=== PATIENT | male | born 1975 | race African-American/Black ===

== ENCOUNTER 2017-05-24 12:45 | Inpatient (IN) | payer BC, OTHER ==
[2017-05-24] MEDS ORDERED: Insulin Aspart 100 Units/ML 3 ML Pen SUBCUT STA ×2 (12:55→14:29)
[2017-05-24] MEDS ORDERED: Sodium Chloride 0.9% 1,000 ML IV SCH ×4 (13:00→16:30)
[2017-05-24] MEDS ORDERED: Sodium Chloride 0.9% 10 ML Syringe FLUSH PRN (14:00)
[2017-05-24] MEDS ORDERED: Insulin Regular, Human 100 Units/ML 3 ML Vial SUBCUT ONE (14:00)
[2017-05-24] MEDS ORDERED: Sodium Chloride 0.45% 1,000 ML IV SCH (14:30)
[2017-05-24] MEDS ORDERED: Insulin Regular, Human 100 Units/ML 3 ML Vial IVPUSH ONE (17:00)
[2017-05-24] MEDS ORDERED: metFORMIN 500 MG Tab.ER PO SCH (18:00)
[2017-05-24] MEDS ORDERED: Insuln Aspart Prot/Insulin Aspart 100 Units/ML 3 ML FlexPen SUBCUT SCH (18:00)
[2017-05-24] MEDS ORDERED: Insulin Detemir 100 Units/ML 3 ML Pen SUBCUT SCH (20:00)
[2017-05-24] MEDS ORDERED: metFORMIN 500 MG Tab.ER PO ONE (20:19)
[2017-05-24 20:29] VITALS: BP 129/78
--- NOTE | 2017-05-24 21:42 | HP ---
ADMISSION DATE: 05/24/2017 CHIEF COMPLAINT: Diabetes, new onset. HISTORY OF PRESENT ILLNESS: Mr. 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 He states that for the past few days he has felt more thirst, frequent urination, slightly blurred vision and he has been drinking more water for this reason, he came in to [place] for blood work. Yesterday, it came back last night and they instructed him to return to the ER today for followup. He was seen in emergency room and his blood sugar came back at 444, for this reason he was admitted to observation care. He was given insulin and started on IV fluid with the new diagnosis of diabetes. The patient has not had any recent infections. He has not been on any medications, specifically steroids. He does exercise on his treadmill almost every day. He states that he does eat high carbohydrates and eats rice at least 4 days a week along with a moderate amount of bread products. PAST MEDICAL HISTORY: He has been very healthy. He is status post appendectomy at age 7. He has had no other surgeries, hospitalizations or illnesses. He is on no medications. He thinks that he had blood work approximately 4 to 5 years ago and was not told there is anything abnormal. MEDICATIONS: None. ALLERGIES: None. HABITS: He is nonsmoker. Occasional alcohol, 2 to 4 beers a week. No caffeinated beverages or other drugs. FAMILY AND SOCIAL HISTORY: The patient's father at age 54 of motor vehicle accident, he was apparently healthy at that time. Mother is age 82 and has Alzheimer's and arthritis. He has several siblings who are all healthy without other family history of diabetes. The patient is single. 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 He moved here from [facility] several years ago and has a brother in [place], where he lived for five years before he moved to [place] to go to school at [employer]. REVIEW OF SYSTEMS: GENERAL: No seizures, syncope, or recent significant weight change. He thinks he may have lost a few pounds. HEENT: No recent changes in hearing, he does report blurred vision and he made an eye appointment for Friday. No sore throat or URI. No cough or purulent sputum. No chest pain or palpitations. No abdominal pain, nausea, diarrhea. No hematochezia or melena. No hematuria or UTI symptoms. No joint inflammation, swelling, skin rash, or mood instability. PHYSICAL EXAMINATION: GENERAL: He is alert, comfortable, and healthy in appearance. He is a good historian. VITAL SIGNS: Blood pressure 133/82, pulse 68 and regular, respirations 18, temp 97.6. Weight 215 pounds. O2 saturation 97% on room air. SKIN: Anicteric, warm, dry, without rash. HEENT: Show clear TMs. Pupils are equal and reactive. Oropharynx clear. NECK: Supple. Thyroid is normal. LUNGS: Clear to the bases. BACK: Straight, nontender. HEART: Regular without murmur, rub or gallop. ABDOMEN: Mildly overweight. Normal bowel sounds. Soft, nontender. No masses. No organomegaly. EXTREMITIES: Warm, well perfused. He has excellent pedal pulses. Sensation is intact on the feet. Station and gait are normal. ASSESSMENT: A 41-year-old man with new onset diabetes, this likely represents type 2 diabetes. Follow up other labs included normal white count, normal hemoglobin, normal blood gases with a bicarb slightly low at 21, sodium 130, potassium 4, BUN 24, creatinine 1.3. Hemoglobin A1c 12.8, AST 30, ALT 51. Urinalysis show glucosuria, no sign of infection. Drug screen is negative. Chest x-ray is normal. A follow up blood sugar has dropped to 383 after 28 units of subcu NovoLog. I will continue his second liter of normal saline at 150 mL/h, I will give an additional 5 units of Humulin R IV now, recheck his Accu-Cheks every 2 hours and if down under 250, he may go home later this evening. I will place him on metformin 500 mg b.i.d., Levemir 15 units q.8 p.m. subcu and set him up for followup appointment the clinic with diabetic teaching, both diet and monitoring as well as insulin administration and establish with a regular physician at the clinic. /[id number] RO/TIMURL
--- NOTE | 2017-05-25 03:11 | ER ---
DATE SEEN: 05/24/2017 CHIEF COMPLAINT: Elevated glucose. The patient's glucose is 599. He is a new-onset diabetic. He is in the ED for further evaluation. The patient has polydipsia and polyuria. He has been without fever or family history of diabetes. No previous history of trauma. No history of pancreatitis. No abdominal pain, but he has been thirsty drinking lots of fluids. The patient denies headache, neck stiffness, but he has slight compromise in vision. He has felt blurred vision. He has no peripheral neuropathy or tingling in his lower extremities. FAMILY HISTORY: No one with diabetes. ALLERGIES: None. MEDICATIONS: None. REVIEW OF SYSTEMS: Otherwise, negative except as noted above. HEENT: Slight blurred vision. Denies headache. CARDIORESPIRATORY: Denies chest pain, shortness of breath, lightheadedness, pressure in his chest or tachycardia. No diaphoresis. ABDOMEN: Denies abdominal pain, nausea, vomiting, or diarrhea. He has had slight nausea. He denies constipation. : He notes frequencies, otherwise no dysuria. MUSCULOSKELETAL: Slight muscle aches. NEURO: Slight dysesthesia in his lower extremities that noted for a year. FAMILY HISTORY: No members with diabetes. ALLERGIES: None. MEDICATIONS: None. PHYSICAL EXAMINATION: VITAL SIGNS: Heart rate 80, respirations 18, blood pressure 150/72, oxygen saturation 100% on room air, and temperature is 36.5. The patient's estimated his weight was 210 pounds. On the basis of that it is considered to be 95 kilos, however, the nurses documented his weight of 101.6 kilos. The lateral will affect further medication use. HEENT: Alert man in no acute distress. PERRLA intact. PHARYNX: Mucosa is normal and moist. He is well-muscled. CARDIORESPIRATORY: Lungs are clear to auscultation without rales or rhonchi. HEART: S1 and S2. No murmur. No tachycardia. ABDOMEN: Soft. No guarding. No abdominal discomfort. Bowel sounds present. EXTREMITIES: Without edema. Slight dysesthesia of the lower extremities when touched. NEUROLOGIC: Cranial nerves 2 through 12 intact. Oriented x3. Gait appropriate. Muscle strength is very good. Deep tendon reflexes are normal. Hypoactive upper and lower extremities and gait appropriate. LABORATORY VALUES: Diabetic ketoacidosis with a sodium of 126. Corrected sodium equals 135 that is for every 100 mg of glucose above 100 multiply the number of 100,s except for the 1st 100 by 0.2.then ad that amount to the current Na. So with glucose of 650 he has a 5.5 (one hundreds above 100)x 0.2 which is about approximately 10 meq which would put him at a corrected 136 meq of corrected sodium. Potassium is 4.1, chloride is 91, CO2 of 25, BUN 24, creatinine 1.4. BUN and creatinine ratio is 17, GFR of 56, glucose 553, hemoglobin A1c 12.8, AST 30, ALT 51, calcium normal at 9, magnesium 2.2 and urine is normal, except for a glucose greater than 1000 and ketones greater than 15. Urinalysis is for drug screen is negative. PLAN: The patient will be hospice. His status was discussed with Dr. Padilla. The patient flushed with 1000 mL of normal saline. Since he has a normal calculated sodium, he will be followed by the up-to-date guidelines at on half normal saline 500 mL an hour until glucose drops to 200 mg. At that point, replaced with one half normal saline with D5W at 150 mL an hour. Also, his glucose to be treated with subcutaneous insulin 0.3 units per kilo. I used at 95 as his weight in kilos ( he told me 209 lbs =95 kg, but this is different from the other measured weight of 101 kilos per nurses). At 95 kilos, he will get approximately 28.5 units of insulin. Initially, I gave before using any of these calculations from the UTD protocol 8 units of insulin and then once his potassium came back additional 20 units of insulin to complete the protocol of 28 units insulin subcu, followed by 0.2 units/kilo which turns out to be about 19 units of insulin until glucose comes down to 200 per hour. He will get hourly BMPs to evaluate potassium and also glucose. His status was discussed with Dr. Padilla. DIAGNOSES: 1. Diabetic ketoacidosis/dehydration. 2. Normal calculated sodium. 3. No hypokalemia. 4. Ketones in the urine. No evidence for urinary tract infection, pulmonary infection, or cardiovascular disease. Time spent with patient 1 hour. /[id number] ERICKA/YAMILETH CORTÉS
--- NOTE | 2017-05-27 11:31 | CR ---
INDICATION: Diabetic ketoacidosis. CHEST, PA AND LATERAL: Negative. MTDD
== END 2017-05-24 20:20 | disposition home or self-care (01) | DRG 420 ==
LOC: FB.ED 12:45 → FB.MS 14:15
PROVIDERS: ADMIT Emergency Medicine; ATTEND Family Medicine
DX: E13.10 Other specified diabetes mellitus with ketoacidosis without coma (principal); E86.0 Dehydration
CPT/HCPCS: 36415; 36600; 71020; 80048; 80053; 80305; 81001; 82803; 82962; 83036; 83690; 83735; 84443; 85025; 96372; 99284; A9270-GY; J1815; J7040; J7050